=== PATIENT | male | born 1975 | race Caucasian/White ===

== ENCOUNTER 2020-01-30 23:04 | Emergency (ER) | payer OTHER ==
[2020-01-30] MEDS ORDERED: AMOXICILLIN TR/POT CLAVULANATE 875-125 MG TAB PO ONE (23:30)
[2020-01-30] MEDS ORDERED: CLINDAMYCIN HCL 150 MG CAPSULE PO ONE (23:30)
[2020-01-31 00:22] VITALS: BP 154/83
--- NOTE | 2020-01-31 00:37 | ER Document Report ---
Entered by JORI MAYORGA SCRIBE 01/30/20 [id number] Acting as scribe for:MAVERICK PINEDO DO ED Eye Complaint - General Chief Complaint: Eye Pain Stated Complaint: EYE PAIN Primary Care Provider: ROSITA TONY DO [ACTIVE STAFF] - Follow up tomorrow Mode of Arrival: Ambulatory Information source: Patient Notes: This 44-year-old male patient presents to the emergency department today with complaints of left eye swelling and associated pain. Patient states that he woke up with this 5 days ago, adding that it was very mild initially. Patient went to an urgent care and he was diagnosed with a corneal abrasion and was sent home with "drops". Patient states the swelling and pain has been getting progressively worse since onset. Patient was not given any antibiotics by the urgent care per history. Patient denies having any foreign body in his eye or being around any chemicals recently. - Related Data Allergies/Adverse Reactions: No Known Allergies Allergy (Verified 01/30/20 23:18) Home Medications: nexium Past Medical History - General Information source: Patient - Social History Smoking Status: Current Every Day Smoker Cigarette use (# per day): Yes Frequency of alcohol use: None Drug Abuse: None Lives with: Family Family History: Reviewed & Not Pertinent Patient has homicidal ideation: No Review of Systems - Review of Systems Constitutional: No symptoms reported EENT: See HPI, Eye pain Cardiovascular: No symptoms reported Respiratory: No symptoms reported Gastrointestinal: No symptoms reported Genitourinary: No symptoms reported Male Genitourinary: No symptoms reported Musculoskeletal: No symptoms reported Skin: No symptoms reported Hematologic/Lymphatic: No symptoms reported Neurological/Psychological: No symptoms reported -: Yes All other systems reviewed and negative Physical Exam - Vital signs Vitals: Temp Pulse Resp BP Pulse Ox 97.9 F 68 16 165/91 H 100 01/30/20 23:17 01/30/20 23:17 01/30/20 23:17 01/30/20 23:17 01/30/20 23:17 Interpretation: Normal - General General appearance: Appears well, Alert - HEENT Head: Normocephalic, Atraumatic Eyes: Periorbital edema - On the left with mild erythema of upper lid and below left eye Conjunctiva: Normal Cornea: Normal Extraocular movements intact: Yes Eyelashes: Normal Pupils: PERRL - Respiratory Respiratory status: No respiratory distress Chest status: Nontender Breath sounds: Normal Chest palpation: Normal - Cardiovascular Rhythm: Regular Heart sounds: Normal auscultation Murmur: No - Abdominal Inspection: Normal Distension: No distension Bowel sounds: Normal Tenderness: Nontender Organomegaly: No organomegaly - Back Back: Normal, Nontender - Extremities General upper extremity: Normal inspection, Nontender, Normal color, Normal ROM, Normal temperature General lower extremity: Normal inspection, Nontender, Normal color, Normal ROM, Normal temperature, Normal weight bearing. No: Lakia's sign - Neurological Neuro grossly intact: Yes Cognition: Normal Orientation: AAOx4 Reji Coma Scale Eye Opening: Spontaneous [place] Coma Scale Verbal: Oriented Reji Coma Scale Motor: Obeys Commands [place] Coma Scale Total: 15 Speech: Normal Motor strength normal: LUE, RUE, LLE, RLE Sensory: Normal - Psychological Associated symptoms: Normal affect, Normal mood - Skin Skin Temperature: Warm Skin Moisture: Dry Skin Color: Normal Course - Re-evaluation Re-evalutation: 01/31/20 00:28 Patient is a 45-year-old male who comes in complaining of left eye swelling. No eye pain or difficulty with vision. No difficulty with extraocular motion. Was seen in urgent care and received eyedrops but states that the redness and swelling of his eyelid are worse. No oral antibiotics recently. No allergies. Patient will be started on clindamycin and Augmentin and be given a prescription. He is to follow-up with ophthalmology. Return if any worsening concerning symptoms such as blurred vision or decreased extraocular motion. Understands agrees with plan. Stable for discharge. Grateful for care. - Vital Signs Vital signs: Temp Pulse Resp BP Pulse Ox 97.8 F 76 20 154/83 H 99 01/31/20 00:25 01/31/20 00:25 01/31/20 00:25 01/31/20 00:25 01/31/20 00:25 Discharge - Discharge Clinical Impression: Preseptal cellulitis of left eye Condition: Stable Disposition: HOME, SELF-CARE Instructions: Cellulitis ([facility]) Prescriptions: Amoxicillin/Potassium Clav [Augmentin 875-125 Tablet] 1 tab PO BID #20 tab Clindamycin HCl 300 mg PO TID #30 capsule Forms: Return to Work Referrals: SZCZESNIEWSKI,ROSITA E, DO [ACTIVE STAFF] - Follow up tomorrow I personally performed the services described in the documentation, reviewed and edited the documentation which was dictated to the scribe in my presence, and it accurately records my words and actions.
== END 2020-01-31 00:24 | disposition home or self-care (01) ==
LOC: ER 23:04
DX: L03.213 Periorbital cellulitis (principal); H57.12 Ocular pain, left eye; F17.210 Nicotine dependence, cigarettes, uncomplicated
CPT/HCPCS: 99283; J3490